=== PATIENT | male | born 1995 | race African-American/Black ===

== ENCOUNTER 2017-02-17 00:19 | Emergency (ER) | payer SELFPAY ==
[~2017-02-17] VITALS: Ht 182.9 cm; Wt 65.8 kg
[2017-02-17 00:30] VITALS: BP_SYST 124
[2017-02-17 02:00] VITALS: BP_SYST 120
== END 2017-02-17 02:00 ==
LOC: SED 00:19
DX: S20.319A Abrasion of unspecified front wall of thorax, initial encounter (principal); S30.811A Abrasion of abdominal wall, initial encounter; W13.8XXA Fall from, out of or through other building or structure, initial encounter; Y93.89 Activity, other specified; Y92.488 Other paved roadways as the place of occurrence of the external cause; Y99.8 Other external cause status
CPT/HCPCS: 99283